=== PATIENT | male | born 1940 | race Caucasian/White ===

== ENCOUNTER 2020-08-14 09:02 | Outpatient (CLI) | payer MEDICARE, SELFPAY ==
--- NOTE | 2020-08-28 15:13 | WPDHOMESLEEP ---
Sleep Study - Home Unattended Date of Study: 08/14/20 Ordering Provider: Dami Dawson MD Interpreting Provider: Faiza Toth MD Home Sleep Study Type: Apnea Link Air Height: 1.8 m Weight: 117.934 kg Body Mass Index: 36.2 Neck Circumference (inches): 20 [place]: 10 Reason for Sleep Study Snoring, need for naps Sleep History Dane Baldwin is a 80-year-old gentleman who rarely snores. Occasionally, it is loud enough that his complains about it. He does not awaken at night with heartburn, belching or coughing. He does not awaken from sleep feeling short of breath. He occasionally has trouble sleeping with a cold however he has not had a cold in several years. He does not wake up gasping for breath at night and does not have breathing problems at night observed by others. He does not sweat excessively at night or notice his heart pounding or beating irregularly at night. He occasionally falls asleep during the day, never involuntarily and never while driving. He does not have loss of muscle tone with strong emotion, and he does not have daytime difficulties due to excessive sleepiness as he is currently retired. He does not feel paralyzed on waking or falling asleep. He rarely has vivid dreamlike scenes upon awakening or falling asleep. He does not feel afraid to go to sleep. He has had nightmares once in his life. He rarely remembers his dreams. He occasionally has racing thoughts. He rarely feels sad or depressed. He never has anxiety. He does not have muscular tension. He rarely notices parts of his body jerking and rarely kicks at night. He does not have crawling or aching feelings in his legs and does not have any kind of leg pain at night. He does not have morning jaw pain. He does not grind his teeth during sleep. He rarely is bothered by pain during the day, occasionally from his knee. He is not awakened by pain at night. He rarely wakes up feeling stiff in the morning. He wakes up with sore achy muscles only if he has strenuously exerted himself the day before. He rarely wakes up with pain in the spine. Normal bedtime is around 10 to 10:30 p.m. sometimes falling asleep more quickly than at other times. He wakes at 6:00 a.m., feels refreshed. His weekend schedule is the same. He estimates getting 6 or more hours of sleep at night. At most, he has nocturia once at night. He does take naps in the afternoon or evening. A short 10 or 15 minute nap may be refreshing. Most of the time, he feels good in the morning. Habits: Never smoked tobacco. Caffeine 2 or more beverages a day. No alcohol or recreational drugs. [facility] Past Medical History Medical History (Updated 08/28/20 @ 15:25 by Faiza Toth MD) ASHD (arteriosclerotic heart disease) Essential hypertension Mixed hyperlipidemia Type 2 diabetes mellitus without complication Family History Family History (Updated 12/22/15 @ 23:19 by DOCTOR UNKNOWN) Sibling Family history of diabetes mellitus in first degree relative Other Diabetes mellitus Social History Social History Smoking status: Never smoker Alcohol intake: never Medications Home Medications Medication Instructions Recorded Confirmed Type aspirin 81 mg tablet,delayed 81 mg PO DAILY 06/14/19 06/19/20 History release omeprazole 40 mg capsule,delayed 40 mg PO DAILY #90 cap 11/08/19 06/19/20 Rx release clopidogrel 75 mg tablet 75 mg PO DAILY #90 tablet 04/17/20 06/19/20 Rx cholecalciferol (vitamin D3) 1,250 50,000 unit PO WEEKLY #14 cap 06/16/20 06/19/20 Rx mcg (50,000 unit) capsule doxycycline hyclate 20 mg tablet 20 mg PO DAILY #1 tablet 06/19/20 06/19/20 Rx rosuvastatin 20 mg tablet 20 mg PO DAILY #90 tablet 06/19/20 06/19/20 Rx amlodipine 10 mg tablet 10 mg PO DAILY #90 tablet 07/07/20 Rx metoprolol succinate 100 mg 100 mg PO DAILY #90 tablet 07/07/20 Rx tablet,extended release 24 hr candesartan 32 1 tablet PO DAILY #90 tablet 07/10/20 Rx
[2020-08-28 15:21] VITALS: BMI 36.2
== END 2020-08-14 09:03 | disposition home or self-care (01) ==
LOC: ANHCSM 09:02
PROVIDERS: PCP Internal Medicine; Visit Provider Internal Medicine
DX: G47.10 Hypersomnia, unspecified (principal); G47.33 Obstructive sleep apnea (adult) (pediatric)
CPT/HCPCS: 95806

== ENCOUNTER 2021-02-08 07:56 | Outpatient (CLI) | payer MEDICARE, SELFPAY ==
--- NOTE | 2021-02-10 21:33 | WPDSLEEPSTUD ---
Sleep Study Date of Study: 02/08/2021 Ordering Provider: Dami Dawson MD Interpreting Physician: Faiza Toth MD Sleep Study Type: Split Polysomnogram Height: 1.8 m Weight: 108.8 kg Body Mass Index: 33.4 Neck Circumference (inches): 18 [place]: 3 Reason for Sleep Study * Home sleep test 08/14/2020 with Mild obstructive sleep apnea, AHI 9, desaturation 85%, 61% of the apneas were centrals; he has hypertension, and presents for CPAP titration. Sleep History This patient had a home sleep test on August 14 with mild obstructive sleep apnea, AHI was 9 with desaturation 85%. 61% of his apneas were centrals. He now presents for titration. His complaints include rare snoring, rarely very loud. He did not have nighttime heartburn symptoms. There was no gasping at night. He did not sweat at night or notice palpitations. He occasionally falls asleep during the day, not involuntarily and not while driving. He does not have loss of muscle tone with strong emotion or daytime difficulties due to excessive sleepiness. He rarely remember dreams. He rarely notices parts of his body jerking and he rarely kicks at night. He does not have crawling or aching feelings in the legs or any kind of leg pain at night. 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 Iron deficiency anemia Mixed hyperlipidemia Primary osteoarthritis of both knees Type 2 diabetes mellitus without complication Family History Family History Sibling Family history of diabetes mellitus in first degree relative Other Diabetes mellitus Social History Social History Alcohol intake: never Medications Home Medications Medication Instructions Recorded Confirmed Type aspirin 81 mg tablet,delayed 81 mg PO DAILY 06/14/19 09/18/20 History release doxycycline hyclate 20 mg tablet 20 mg PO DAILY #1 tablet 06/19/20 09/18/20 Rx rosuvastatin 20 mg tablet 20 mg PO DAILY #90 tablet 06/19/20 09/18/20 Rx candesartan 32 1 tablet PO DAILY #90 tablet 07/10/20 09/18/20 Rx mg-hydrochlorothiazide 12.5 mg tablet metformin 500 mg tablet See Rx Instructions .ROUTE 11/13/20 Rx .COMPLEX #180 tablet amlodipine 10 mg tablet 10 mg PO DAILY #90 tablet 01/04/21 Rx metoprolol succinate 100 mg 100 mg PO DAILY #90 tablet 01/04/21 Rx tablet,extended release 24 hr icosapent ethyl 1 gram capsule 2 g PO BID #360 cap 01/31/21 Rx Sleep Procedure This test was performed using the [employer] multiple channel system including EOG, EEG, submental EMG, EKG, nasal and oral airflow using thermistors and nasal pressure sensors, chest and abdominal belts for body position data, and pulse oximetry. Video monitoring was also performed. The study was scored using [facility] guidelines. After the baseline portion the patient met criteria for a titration with an apnea-hypopnea index of 50.7. These were all obstructive events. He used a medium ResMed AirFit F20 fullface mask and heated humidifier. The patient was not able to sleep easily after starting wearing CPAP. The initial pressure was 5 cm with a sleep efficiency of 38%. At 7 cm of water pressure the sleep efficiency was 3%. The patient had 2 minutes of sleep at this pressure. This was not an adequate titration as the patient did not have sufficient sleep. At 7 cm the apnea-hypopnea index was 30 however this is difficult to interpret as he only had 2 minutes of sleep and 1 event. THe lowest saturation was 88% at this setting. Sleep Architecture Baseline During the baseline recording time was 197.5 minutes. Sleep time 143.2 minutes. Sleep efficiency was 72.5%. Sleep latency was 5.8 minutes. REM latency 180.5 minutes. He had 25 awakenings. He spent 48 0.5 minute awake after sleep onset.
[2021-02-10 21:40] VITALS: BMI 33.4
== END 2021-02-14 02:07 | disposition home or self-care (01) ==
LOC: ANHCSM 08:01
PROVIDERS: PCP Internal Medicine; Visit Provider Internal Medicine
DX: G47.33 Obstructive sleep apnea (adult) (pediatric) (principal)
CPT/HCPCS: 95811

== ENCOUNTER 2023-11-18 22:41 | Emergency (ER) | payer MEDICARE, SELFPAY ==
--- NOTE | 2023-11-18 22:43 | PC.NURSE ---
alessia marshall in triage to assess the patient. No current beds available.
[2023-11-18 22:45] VITALS: BP 174/85; PULSE 100; RESP 20; TEMP 36.6; O2SAT 99
[2023-11-18 22:50] VITALS: O2SAT 100
--- NOTE | 2023-11-18 22:50 | PC.NURSE ---
home med list verified with [facility]
[2023-11-18] MEDS: FAMOTIDINE 20 MG/2 ML VIAL IV PUSH (22:53)
[2023-11-18] MEDS: methylPREDNISolone SOD SUCC 125 MG VIAL IV PUSH (22:55)
[2023-11-18] MEDS: diphenhydrAMINE HCl INJ 50 MG/ML VIAL IV PUSH (22:57)
[2023-11-18] MEDS: EPINEPHrine HCL INJ 1 MG/ML AMPUL 0.3 MG IM (22:58)
[2023-11-18 23:03] LABS: Basophils Percent Auto 0.5 % (0.2-1.2); Eosinophils Absolute Auto 0.2 K/mm3 (0-0.3); Eosinophils Percent Auto 2.6 % (0-4.4); Hematocrit 42.7 % (42.0-52.0); Hemoglobin 14.1 g/dL (14.0-18.0); Immature Granulocyte Absolute 0.04 K/mm3 (0.00-0.031); Immature Granulocyte Percent A 0.5 % (0-0.5); Lymphocytes Absolute Auto 2.81 K/mm3 (0.9-3.2); Mean Corpuscular Hemoglobin 30.5 pg (26-34); Mean Corpuscular Volume 92.2 fl (80-100); Mean Platelet Volume 8.8 fl (7.4-10.4); Monocytes Absolute Auto 0.7 K/mm3 (0.1-0.6); Monocytes Percent Auto 8.8 % (2.6-8.5); Neutrophils Percent Auto 51.6 % (45.5-73.1); Platelet Count Result 211 k/mm3 (150-375); Red Blood Count 4.63 M/mm3 (4.6-6.20); Red Cell Distribution Width 14.6 % (11.5-14.5); White Blood Count 7.8 K/mm3 (4.5-10.0)
[2023-11-18 23:13] LABS: Alanine Aminotransferase 16 U/L (6-50); Alkaline Phosphatase 61 U/L (38-126); Anion Gap 11 mmol/L (4-12); Aspartate Amino Transferase 22 U/L (17-59); Bilirubin,Total 1.3 mg/dL (0.2-1.3); Blood Urea Nitrogen 20 mg/dL (9-20); Calcium 9.4 mg/dL (8.4-10.2); Carbon Dioxide 29 mmol/L (22-30); Chloride 100 mmol/L (98-107); Estimated Glomerular Filt Rate > 60; Glucose 150 mg/dL (65-110); Potassium 3.9 mmol/L (3.4-5.0); Sodium 140 mmol/L (137-145)
[2023-11-18 23:20] VITALS: BP 183/69; PULSE 105; RESP 15; O2SAT 99
--- NOTE | 2023-11-18 23:28 | ED.GENADULT ---
HPI - General Adult General Chief complaint: Allergic Reaction <JULIA Block Last Filed: 11/19/23 03:24> Stated complaint: tongue swelling cant talk <JULIA Block Last Filed: 11/19/23 03:24> Time Seen by Provider: 11/18/23 22:45 <JULIA Block Last Filed: 11/19/23 03:24> Source: patient <JULIA Block Last Filed: 11/19/23 03:24> Mode of arrival: ambulatory <JULIA Block Last Filed: 11/19/23 03:24> Limitations: no limitations <JULIA Block Last Filed: 11/19/23 03:24> History of Present Illness HPI narrative: patient is an 83-year-old male who presents the ED with report of swelling of his tongue. Patient reports he began noticing a strange swelling sensation to his tongue just before dinner-time. He had [employer] spaghetti/meatballs and garlic cheese bread around 8 pm tonight. He later began noticing increased swelling of his tongue. States he is having mild difficulty swallowing due to the swelling. Denies difficulty breathing. Patient denies eating new foods tonight. He denies any known food or medication allergies. He denies any new medications. He is on candesartan/ hydrochlorothiazide. No Milind inhibitors. Denies history of similar symptoms. Denies rash or itching elsewhere. Denies nausea, vomiting, abdominal pain. <JULIA Block Last Filed: 11/19/23 03:24> Related Data Home medications: Home Medications Medication Instructions Recorded Confirmed aspirin 81 mg tablet,delayed 81 mg PO DAILY 06/14/19 09/16/23 release (Adult Low Dose Aspirin) cholecalciferol (vitamin D3) 50 50 mcg PO DAILY 02/13/21 09/16/23 mcg (2,000 unit) capsule acetaminophen 500 mg capsule 1,000 mg PO Q6H PRN Acid Reflux 03/27/21 09/16/23 doxycycline hyclate 20 mg tablet 20 mg PO DAILY 09/17/22 09/16/23 icosapent ethyl 1 gram capsule g PO 11/18/23 <Yolis Cantu PA-C - Last Filed: 11/19/23 03:24> Allergies/adverse reactions: Allergies Allergy/AdvReac Type Severity Reaction Status Date / Time No Known Allergies Allergy Unknown Verified 11/18/23 23:16 <Yolis Cantu PA-C - Last Filed: 11/19/23 03:24> Review of Systems Review of Systems: CONSTITUTIONAL: Denies fever, chills, or sweats. ENT: See HPI. CARDIOVASCULAR: Denies chest pain RESPIRATORY: See HPI. GASTROINTESTINAL: Denies abdominal pain, nausea, vomiting, or diarrhea. SKIN: Denies rash or itching. 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 Iron deficiency anemia Mixed hyperlipidemia Primary osteoarthritis of both knees Type 2 diabetes mellitus without complication <Yolis Cantu PA-C - Last Filed: 11/19/23 03:24> Family History Family History: Family History Sibling Family history of diabetes mellitus in first degree relative Other Diabetes mellitus <Yolis Cantu PA-C - Last Filed: 11/19/23 03:24> Social History Social History: Social History Smoking status: Never smoker Second hand tobacco smoke exposure: Yes Alcohol intake: former Substance use: never Substance use type: does not use Lack of Transportation: No Lack of Food: Never True Current Housing: I Have Housing Concerned About Future Housing: No Difficulty Paying Gas/Electric Bills: No Difficulty Paying for Meds: No Currently Unemployed: No Education: Bachelor's Degree Difficulty w/ Childc
[2023-11-18 23:32] VITALS: BP 164/64; PULSE 95; RESP 13; O2SAT 96
[2023-11-19] MEDS: TRANEXAMIC ACID 1,000MG/ISO100 1,000 MG/100 ML BAG 600 MG IVPB (01:41)
[2023-11-19 01:45] VITALS: BP 159/80; PULSE 93; RESP 15; O2SAT 97
--- NOTE | 2023-11-19 03:52 | PC.NURSE ---
Substantial improvement of facial and tongue swelling was noted at time of pt discharge.
== END 2023-11-19 03:15 | disposition home or self-care (01) ==
PROVIDERS: Emergency Provider Physician Assistant; PCP Nurse Practitioner
DX: T78.3XXA Angioneurotic edema, initial encounter (principal); I10 Essential (primary) hypertension; E78.2 Mixed hyperlipidemia; E11.9 Type 2 diabetes mellitus without complications
CPT/HCPCS: 36415; 80053; 85025; 96372; 96374; 96375; 99284; J0171; J1200; J2919

== ENCOUNTER 2024-06-11 16:12 | Emergency (ER) | payer OTHER, SELFPAY ==
[2024-06-11 16:13] VITALS: BP 185/76; PULSE 104; RESP 16; TEMP 36.6; O2SAT 99
--- NOTE | 2024-06-11 16:20 | ED.GENADULT ---
HPI - General Adult General Chief complaint: Dental/Oral <Von Jeffries PA-C - Last Filed: 06/11/24 16:23> Stated complaint: L sided tongue swelling <Von Jeffries PA-C - Last Filed: 06/11/24 16:23> Time Seen by Provider: 06/11/24 16:19 <Von Jeffries PA-C - Last Filed: 06/11/24 16:23> Focused HPI: This is an 84-year-old male who presents to the ED for chief complaint of tongue swelling that started just prior to to arrival. Patient states that he has had this a couple of times in the past. States that he took an EpiPen today prior to arrival as advised by his family member. States the last time he was told to stop taking his candesartan hydrochlorothiazide, which he feels that he has stopped but is not quite sure exactly what medications he takes. States today is not as bad as last time. Denies shortness of breath, chest pain, rash, abdominal pain, nausea, vomiting. GENERAL: Well-appearing, well-nourished, and in no acute distress. HEAD: Normocephalic, atraumatic. EENT: Mucosal swelling to the tongue without swelling to the lips or visualized portion of uvula. CHEST: Clear to auscultation. No respiratory distress. HEART: Regular rate and rhythm. NEURO: Alert and oriented x3. Patient screened in triage and initial orders placed. Additional care and disposition to be based upon diagnostic testing and treatment. <Von Jeffries PA-C - Last Filed: 06/11/24 16:23> Source: patient <Von Jeffries PA-C - Last Filed: 06/11/24 16:23> Mode of arrival: ambulatory <Von Jeffries PA-C - Last Filed: 06/11/24 16:23> Limitations: no limitations <Von Jeffries PA-C - Last Filed: 06/11/24 16:23> History of Present Illness HPI narrative: Patient 84-year-old gentleman presents emergency department chief complaint of tongue swelling. The patient reports he has had allergic reactions before in the past had used his EpiPen today the patient used approximately 1 hour prior to arrival in the emergency department. The patient reports the swelling has gone down and feels much better <Lorenzo Roman MD - Last Filed: 06/11/24 18:08> Related Data Home medications: Home Medications ?Medication ?Instructions ?Recorded ?Confirmed ?Last Taken ?Type aspirin 81 mg tablet,delayed 81 mg PO DAILY 06/14/19 03/25/24 Unknown History release (Adult Low Dose Aspirin) cholecalciferol (vitamin D3) 50 50 mcg PO DAILY 02/13/21 03/25/24 Unknown History mcg (2,000 unit) capsule acetaminophen 500 mg capsule 1,000 mg PO Q6H PRN Acid Reflux 03/27/21 03/25/24 Unknown History doxycycline hyclate 20 mg tablet 20 mg PO DAILY 09/17/22 03/25/24 Unknown History icosapent ethyl 1 gram capsule g PO 11/18/23 03/25/24 Unknown History <Von Jeffries PA-C - Last Filed: 06/11/24 16:23> Allergies/adverse reactions: Allergies Allergy/AdvReac Type Severity Reaction Status Date / Time No Known Allergies Allergy Unknown Verified 03/25/24 07:43 <Von Jeffries PA-C - Last Filed: 06/11/24 16:23> Review of Systems Review of Systems: A 10 system review of systems was completed on the patient and is negative except for what is stated in the HPI. Nursing and ancillary documentation was reviewed. 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 Iron deficiency anemia Mixed hyperlipidemia Primary osteoarthritis of both knees Type 2 diabetes mellitus without complication <Von Jeffries PA-C - Last Filed: 06/11/24 16:23> Family History Family History: Family History Sibling Family history of diabetes mellitus in first degree relative Other Diabetes mellitus <Von Jeffries PA-C - Last Filed: 06/11/24 16:23> Social History Social History: Social History Smoking status: Never smoker Second hand tobacco smoke exposure: Yes Alcohol intake: former Substance use: never Substance use type: does not use Lack of Transportation: No Lack of Food: Never True Current Housing: I Have Housing Concerned About Future Housing: No Difficulty Paying Gas/Electric Bills: No Difficulty Paying for Meds: No Currently Unemployed: No Education: Bachelor's Degree Difficulty w/ Childcare or Family Care: No <Von Jeffries PA-C - Last Filed: 06/11/24 16:23> Exam Narrative: GENERAL: Well-appearing, well-nourished, and in no acute distress. HEAD: Normocephalic, atraumatic. EYES: PERRLA and EOMI. ENT: Nares clear, no rhinorrhea or epistaxis. Mucous membranes moist. NECK: Supple. CHEST: Clear to auscultation. No respiratory distress. HEART: Regular rate and rhythm. No murmur heard. Normal peripheral pulses. ABDOMEN: Soft, nontender, nondistended, normal active bowel sounds. EXTREMITIES: Normal range of motion. No edema. SKIN: Warm, dry, no rash. NEURO: No focal deficits. Alert and oriented x3. PSYCH: Normal mood and affect. <Lorenzo Roman MD - Last Filed: 06/11/24 18:08> Course Vital Signs Vital signs: Vital Signs Temperature 36.6 C 06/11/24 16:13 Pulse Rate 104 H 06/11/24 16:13 Respiratory Rate 16 06/11/24 16:13 Blood Pressure 185/76 H 06/11/24 16:13 Pulse Oximetry 99 06/11/24 16:13 Oxygen Delivery Room Air 06/11/24 16:13 Temperature 36.6 C 06/11/24 16:13 Pulse Rate 92 06/11/24 17:30 Respiratory Rate 14 06/11/24 17:30 Blood Pressure 157/84 H 06/11/24 17:30 Pulse Oximetry 97 06/11/24 17:30 Oxygen Delivery Room Air 06/11/24 16:13 <Von Jeffries PA-C - Last Filed: 06/11/24 16:23> Vital Signs Temperature 36.6 C 06/11/24 16:13 Pulse Rate 104 H 06/11/24 16:13 Respiratory Rate 16 06/11/24 16:13 Blood Pressure 185/76 H 06/11/24 16:13 Pulse Oximetry 99 06/11/24 16:13 Oxygen Delivery Room Air 06/11/24 16:13 Temperature 36.6 C 06/11/24 16:13 Pulse Rate 92 06/11/24 17:30 Respiratory Rate 14 06/11/24 17:30 Blood Pressure 157/84 H 06/11/24 17:30 Pulse Oximetry 97 06/11/24 17:30 Oxygen Delivery Room Air 06/11/24 16:13 <Lorenzo Roman MD - Last Filed: 06/11/24 18:08> Medical Decision Making MDM Narrative Medical decision making narrative: Differential diagnosis includes allergic reaction, angioedema The patient is currently back to normal will be observed for a total of 4 hours and will be discharged home on prednisone and given a prescription for epinephrine <Lorenzo Roman MD - Last Filed: 06/11/24 18:08> Vital Signs Vital Signs: Vital Signs Temperature 36.6 C 06/11/24 16:13 Pulse Rate 104 H 06/11/24 16:13 Respiratory Rate 16 06/11/24 16:13 Blood Pressure 185/76 H 06/11/24 16:13 Pulse Oximetry 99 06/11/24 16:13 Oxygen Delivery Room Air 06/11/24 16:13 Temperature 36.6 C 06/11/24 16:13 Pulse Rate 92 06/11/24 17:30 Respiratory Rate 14 06/11/24 17:30 Blood Pressure 157/84 H 06/11/24 17:30 Pulse Oximetry 97 06/11/24 17:30 Oxygen Delivery Room Air 06/11/24 16:13 <Von Jeffries PA-C - Last Filed: 06/11/24 16:23> Vital Signs Temperature 36.6 C 06/11/24 16:13 Pulse Rate 104 H 06/11/24 16:13 Respiratory Rate 16 06/11/24 16:13 Blood Pressure 185/76 H 06/11/24 16:13 Pulse Oximetry 99 06/11/24 16:13 Oxygen Delivery Room Air 06/11/24 16:13 Temperature 36.6 C 06/11/24 16:13 Pulse Rate 92 06/11/24 17:30 Respiratory Rate 14 06/11/24 17:30 Blood Pressure 157/84 H 06/11/24 17:30 Pulse Oximetry 97 06/11/24 17:30 Oxygen Delivery Room Air 06/11/24 16:13 <Lorenzo Roman MD - Last Filed: 06/11/24 18:08> Discharge Plan Discharge Clinical Impression: Allergic reaction <Von Jeffries PA-C - Last Filed: 06/11/24 16:23> Patient Disposition: Home, Self-Care <Von Jeffries PA-C - Last Filed: 06/11/24 16:23> Condition: Stable <JULIA Daugherty Last Filed: 06/11/24 16:23> Instructions: Antibiotic Form, General Allergic Reaction (ED) <JULIA Daugehrty Last Filed: 06/11/24 16:23> Patient Language: Portuguese <Von Jeffries PA-C - Last Filed: 06/11/24 16:23> Prescriptions: New epinephrine [EpiPen 2-Obed] 0.3 mg/0.3 mL auto-injector 0.3 mg IM Q5-15M PRN (Reason: anaphylaxis) Qty: 2 0RF Rx Instructions: do not exceed 3 doses per episode prednisone 20 mg tablet 40 mg PO DAILY 5 Days Qty: 10 0RF No Action metoprolol succinate 100 mg tablet extended release 24 hr 100 mg PO DAILY Qty: 90 1RF nitroglycerin 0.4 mg tablet, sublingual 0.4 mg sublingual Q5M PRN (Reason: chest pain) Qty: 30 1RF Rx Instructions: do not exceed 3 doses per episode acetaminophen 500 mg capsule 1,000 mg PO Q6H PRN (Reason: Acid Reflux) cholecalciferol (vitamin D3) 50 mcg (2,000 unit) capsule 50 mcg PO DAILY doxycycline hyclate 20 mg tablet 20 mg PO DAILY icosapent ethyl 1 gram capsule PO aspirin [Adult Low Dose Aspirin] 81 mg tablet,delayed release (DR/EC) 81 mg PO DAILY metformin 500 mg tablet See Rx Instructions .ROUTE .COMPLEX Qty: 180 1RF Dose Instruction: TAKE 1 TABLET BY MOUTH TWICE A DAY Rx Instructions: TAKE 1 TABLET BY MOUTH TWICE A DAY rosuvastatin 20 mg tablet See Rx Instructions .ROUTE .COMPLEX Qty: 90 1RF Dose Instruction: TAKE 1 TABLET BY MOUTH EVERY DAY Rx Instructions: TAKE 1 TABLET BY MOUTH EVERY DAY amlodipine 10 mg tablet See Rx Instructions .ROUTE .COMPLEX Qty: 90 1RF Dose Instruction: TAKE 1 TABLET BY MOUTH EVERY DAY Rx Instructions: TAKE 1 TABLET BY MOUTH EVERY DAY hydralazine 50 mg tablet See Rx Instructions .ROUTE .COMPLEX Qty: 90 3RF Dose Instruction: TAKE 1 TABLET BY MOUTH 3 TIMES A DAY Rx Instructions: TAKE 1 TABLET BY MOUTH 3 TIMES A DAY icosapent ethyl [Vascepa] 1 gram capsule 2 g PO BID Qty: 360 1RF <Von Jeffries PA-C - Last Filed: 06/11/24 16:23> Follow-up/Referrals: Alfonso Varghese APRN [Primary Care Provider] - <Von Jeffries PA-C - Last Filed: 06/11/24 16:23>
[2024-06-11] MEDS: diphenhydrAMINE HCl INJ 50 MG/ML VIAL 25 MG IV PUSH (17:13)
[2024-06-11] MEDS: dexAMETHasone SOD PHOS INJ 10 MG/ML 1 ML VIAL IV PUSH (17:14)
[2024-06-11] MEDS: FAMOTIDINE 20 MG/2 ML VIAL IV PUSH (17:14)
[2024-06-11 17:30] VITALS: BP 157/84; PULSE 92; RESP 14; O2SAT 97
[2024-06-11 18:00] VITALS: BP 135/75; PULSE 91; RESP 15; O2SAT 96
[2024-06-11 19:17] VITALS: BP 136/88; PULSE 74; RESP 16; O2SAT 98
--- OUTSIDE RECORDS SUMMARY | 2024-06-17 07:18 | XMS_ITS | Referral Summary ---
Author Organization [facility] [address] [facility] [address] Address [address] [place] [address] Care Team Providers Care Church Musician Name Role Phone Alfonso Varghese NP Primary Care Provider [phone] Allergies No known active allergies Medications rosuvastatin (CRESTOR) 20 mg tablet take 1 tablet by oral route every day 0 0 4 Active niacin ER (NIASPAN) 125 mg CR capsule take 1 capsule by oral route every day with meals 0 0 4 Active Additional Information Patient not taking.Reported on 05/14/2022 metFORMIN (GLUCOPHAGE) 500 mg tablet take 1 tablet by oral route 2 times every day with morning and evening meals 0 0 4 Active aspirin (ASPIR-81) 81 mg tablet take 1 Tablet by oral route every day 0 0 6 Active FABB 2.2-25-1 mg tablet Take 1 tablet by mouth daily 3 9 Active doxycycline (PERIOSTAT) 20 mg tablet 1 tablet (20 mg total) daily 5 9 Active icosapent ethyL (VASCEPA) 1 gram capsule Take 2 capsules (2 g total) by mouth 2 (two) times a day Active metoprolol XL (TOPROL-XL) 50 mg extended release tablet Take 2 tablets (100 mg total) by mouth daily Active candesartan-hyd rochlorothiazid (ATACAND HCT) 32-12.5 mg per tablet Take 1 tablet by mouth daily Active amLODIPine (NORVASC) 10 mg tablet amlodipine 10 mg tablet Active nitroglycerin (NITROSTAT) 0.[address] 1 tablet (0.4 mg total) under the tongue every 5 (five) minutes as needed for chest pain 25 tablet 11 2 Active Active Problems Problem Noted Date Diagnosed Date Angina pectoris, unspecified 11/08/2021 History of coronary artery stent placement 08/17 Coronary artery disease invo lving [place] coronary artery of [place] heart without angina pectoris 02/19/2018 Social History Tobacco Use Types Packs/Day Years Used Date Smoking Tobacco: Never Smokeless Tobacco: Never Tobacco Cessation:Counseling Given: Not Answered Alcohol Use Standard Drinks/Week Comments No 0 (1 standard drink = 0.6 oz pur e alcohol) Personal Safety Answer Date Recorded Getting School Help Needed Not on file 06/29 Sex and Gender Information Value Date Recorded Sex Assigned at Not on file Legal Sex Male 2:05 AM [employer] PAGE DES[employer] Gender Identity Not on file Sexual Orientation Not on file Last Filed Vital Signs Vital Sign Reading Time Taken Comments Blood Pressure 162/80 07/01/2023 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 Pulse 77 07/01/2023 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 Temperature - - Respiratory Rate - - Oxygen Saturation 100% 07/01/2023 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 Inhaled Oxygen Concentration - - Weight 101.2 kg (223 lb) 07/01/2023 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 Height 180.3 cm (5' 11 ) 07/01/2023 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 Body Mass Index 31.1 07/01/2023 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 Plan of Treatment Not on file [place] [address] [facility] MEDICARE [employer] MEDICARE Care Teams Church Musician Relationship Specialty Start Date End Date Alfonso Varghese NP [address] [place] [address] PCP - General Nurse Practitioner 07/01/23
--- OUTSIDE RECORDS SUMMARY | 2024-06-17 07:18 | XMS_ITS | Clinical Summary ---
Author Organization [facility] [address] [facility] [address] Address [address] [place] [address] Care Team Providers Care Mountain Bike Guide Name Role Phone Alfonso Varghese NP Primary Care Provider [phone] Allergies No known active allergies Medications rosuvastatin [...] placement 08/17 Coronary artery disease invo lving [place] coronary artery of [place] heart without angina pectoris 02/19/2018 Surgical History Surgery Date Site/Laterality Comments KNEE SURGERY 05/26/2020 - 05/25/2021 Right JOINT REPLACEMENT 03/15 Medical History Medical History Date Comments CAD (coronary artery disease) Diabetes mellitus (HCC) Hypertension Social History Tobacco Use Types Packs/Day Years [...] on file Legal Sex Male 2:05 AM INCIDENT COORDINATOR Gender Identity Not on file Sexual Orientation Not on file Obstetrics History Last Filed Vital Signs Vital Sign Reading Time Taken Comments Blood Pressure 162/80 07/01/2023 8:32 AM INCIDENT COORDINATOR Pulse 77 07/01/2023 8:32 AM INCIDENT COORDINATOR Temperature - - Respiratory Rate - - Oxygen Saturation 100% 07/01/2023 8:32 AM INCIDENT COORDINATOR Inhaled Oxygen Concentration - - Weight 101.2 kg (223 lb) 07/01/2023 8:32 AM INCIDENT COORDINATOR Height 180.3 cm (5' 11 ) 07/01/2023 8:32 AM INCIDENT COORDINATOR Body Mass Index 31.1 07/01/2023 8:32 AM INCIDENT COORDINATOR Plan of Treatment Health Maintenance Due Date Last Done Comments Depression Screening 1942 Fall Risk Assessment 1942 DTaP/Tdap/Td Vaccine (1 - Tdap) 1953 Hepatitis B Screening 1960 Well Visit 65+ 2007 Zoster Vaccine (2 of 2) 01/09/2019 11/14/2018 Influenza Vaccine (#1) 2024 8, 03/11/2016, 04/04/2015, Additional history exists Pneumococcal vaccine 65+ Completed 019, 05/08/2017, 03/04/2012 [address] [place] [address] [address] T MEDICARE Care Teams Mountain Bike Guide Relationship Specialty Start Date End Date Alfonso Varghese NP [address] [place] [address] PCP - General Nurse Practitioner 07/01/23
== END 2024-06-11 19:18 | disposition home or self-care (01) ==
PROVIDERS: Emergency Provider Emergency Medicine; PCP Nurse Practitioner
DX: T78.40XA Allergy, unspecified, initial encounter (principal); I25.10 Atherosclerotic heart disease of native coronary artery without angina pectoris; I10 Essential (primary) hypertension; E11.9 Type 2 diabetes mellitus without complications; E78.2 Mixed hyperlipidemia; D50.9 Iron deficiency anemia, unspecified; M17.0 Bilateral primary osteoarthritis of knee; Z79.82 Long term (current) use of aspirin; Z79.84 Long term (current) use of oral hypoglycemic drugs; Z79.899 Other long term (current) drug therapy; X58.XXXA Exposure to other specified factors, initial encounter
CPT/HCPCS: 96374; 96375; 96376; 99284; J1100; J1200

== ENCOUNTER 2025-05-04 16:39 | Emergency (ER) | payer MEDICARE, SELFPAY ==
[2025-05-04] VITALS (26 sets, daily range): BP systolic 122–148; BP diastolic 74–95; PULSE 83–117; RESP 9–31; TEMP 36.9; O2SAT 93–99
--- NOTE | ~2025-05-04 | CT_ITS ---
EXAM/PROCEDURE: CT soft tissue neck w con HISTORY: swollen tongue, concern for angioedema COMPARISON: None available. TECHNIQUE: Contrast-enhanced soft tissue neck CT FINDINGS: Slight prominence in the right tonsillar column/soft tissues with no compromise of the oropharyngeal or hypopharyngeal airway. No discrete lesion or mass. No drainable fluid collection. Retropharyngeal and parapharyngeal spaces appear otherwise normal. Fossae of [place] are symmetric and appear normal. Moderately extensive vascular calcification in the carotid arteries. No acute process seen in the intracranial contents or visualized upper chest. Diffuse degenerative changes throughout the cervical spine. IMPRESSION: Mildly prominent right tonsillar soft tissues could be associated with infection/inflammation or possible angioedema. No discrete lesion/mass; no abscess or drainable fluid collection. NOTE: Preliminary radiology report provided by [facility] radiologist/physician. IMPRESSION: No acute findings. Reviewed, dictated and finalized at location A. NT CARE COORDINATOR IMPRESSION: Mildly prominent right tonsillar soft tissues could be associated w ith infection/inflammation or possible angioedema. No discrete lesion/mass; no abscess or drainable fluid collection. NOTE: Preliminary radiology report provided by [facility] radiologist/physician. IMPRESSION: No acute findings.
--- NOTE | 2025-05-04 17:05 | ED_ITS ---
HPI - Dental/Oral General Chief complaint: Allergic Reaction <Sara Forbes APRN - Last Filed: 05/04/25 23:59> Stated complaint: tongue swelling <Sara Forbse APRN - Last Filed: 05/04/25 23:59> Time Seen by Provider: 05/04/25 17:01 <Sara Forbes APRN - Last Filed: 05/04/25 23:59> History of Present Illness HPI Narrative: Patient is an 84-year-old male who presents to the ER with tongue swelling. He reports his symptoms started approximately 30 minutes for higher to arrival. His reports his voice has changed. Patient reports he has had this sensation before and has been evaluated and this ER multiple times for the same symptoms. He endorses a history of cardiac stents, high blood pressure, and hyperlipidemia. Patient denies any difficulty swallowing, shortness of breath, hives, or drooling. <Sara Forbes APRN - Last Filed: 05/04/25 23:59> Related Data Home medications: Home Medications ?Medication ?Instructions ?Recorded ?Confirmed ?Last Taken ?Type aspirin 81 mg tablet,delayed 81 mg PO DAILY 06/14/19 1 Unknown History release (Adult Low Dose Aspirin) cholecalciferol (vitamin D3) 50 50 mcg PO DAILY 03/04/25 Unknown History mcg (2,000 unit) capsule acetaminophen 500 mg capsule 1,000 mg PO Q6H PRN Acid Reflux 03/27/21 03/04/25 Unknown History doxycycline hyclate 20 mg tablet 20 mg PO DAILY 03/04/25 Unknown History <Sara Forbes APRN - Last Filed: 05/04/25 23:59> Allergies/adverse reactions: Allergies Allergy/AdvReac Type Severity Reaction Status Date / Time candesartan AdvReac Intermediate Swelling Verified 05/04/25 17:01 of Lip/Tongue/Throat <Sara Forbes APRN - Last Filed: 05/04/25 23:59> Review of Systems 2 Review of Systems: All systems reviewed & are unremarkable except as noted in HPI and below <Sara Forbes APRN - Last Filed: 05/04/25 23:59> PMFSH Past Medical History Medical History: Medical History BMI 31.0-31.9,adult ASHD (arteriosclerotic heart disease) Essential hypertension 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 Mother No problems noted. Other Diabetes mellitus <Sara Forbes APRN - Last Filed: 05/04/25 23:59> Social History Social History: Social History Smoking status: Never smoker Second hand tobacco smoke exposure: Yes Alcohol intake: former Substance use: never Substance use type: does not use Lack of Transportation: No Lack of Food: Never True Current Housing: I Have Housing Concerned About Future Housing: No Difficulty Paying Gas/Electric Bills: No Difficulty Paying for Meds: No Currently Unemployed: No Education: Bachelor's Degree Difficulty w/ Childcare or Family Care: No Living arrangements: with family Occupation/Education: 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 HEAD: Normocephalic, atraumatic. + tongue swelling, no uvula deviation, no redness, no significant swelling in other parts of pt's mouth, + muffled voice NECK: Supple. No adenopathy, no masses. RESPIRATORY: Airway patent, respirations nonlabored. Clear to auscultation bilaterally, no rales, rhonchi, wheezing. CARDIOVASCULAR: Regular rate and rhythm without murmurs, rubs, or gallops. Peripheral pulses 2+ and equal bilaterally. ABDOMINAL: Soft, nontender, nondistended, no hepatosplenomegaly. Normoactive BS. MUSCULOSKELETAL: Moves all extremities. Strength/ROM intact without gross deformities. SKIN: Warm, dry, normal color. No rashes. NEURO: A&O X3. Speech clear. Cranial nerves II-XII intact. No ataxic movements. PSYCHIATRIC: Appropriate mood and affect. Normal interaction. <Sara Forbes, NARCOTICS AGENT - Last Filed: 05/04/25 23:59> Course LORRY WEIGHER/PA Physician Supervision This visit was performed by both a physician and an APC. I performed all aspects of the MDM as documented. <Evangelist Barajas, - Last Filed: 05/05/25 00:44> Vital Signs Vital signs: Vital Signs Pulse Rate 87 05/04/25 16:56 Respiratory Rate 15 05/04/25 16:56 Blood Pressure 133/75 05/04/25 16:56 Pulse Oximetry 99 05/04/25 16:56 Oxygen Delivery Room Air 05/04/25 16:56 Temperature 98.4 F 05/04/25 23:45 Pulse Rate 98 05/04/25 23:45 Respiratory Rate 18 05/04/25 23:45 Blood Pressure 144/90 H 05/04/25 23:45 Pulse Oximetry 97 05/04/25 23:45 Oxygen Delivery Room Air 05/04/25 16:56 <Sara Forbes, NARCOTICS AGENT - Last Filed: 05/04/25 23:59> Vital Signs Pulse Rate 87 05/04/25 16:56 Respiratory Rate 15 05/04/25 16:56 Blood Pressure 133/75 05/04/25 16:56 Pulse Oximetry 99 05/04/25 16:56 Oxygen Delivery Room Air 05/04/25 16:56 Temperature 98.4 F 05/04/25 23:45 Pulse Rate 98 05/04/25 23:45 Respiratory Rate 18 05/04/25 23:45 Blood Pressure 144/90 H 05/04/25 23:45 Pulse Oximetry 97 05/04/25 23:45 Oxygen Delivery Room Air 05/04/25 16:56 <Evangelist Barajas, - Last Filed: 05/05/25 00:44> [facility] MDM Narrative Medical decision making narrative: Patient is an 84-year-old male who presents to the ER with tongue swelling. He reports his symptoms started approximately 30 minutes for higher to arrival. His reports his voice has changed. Patient reports he has had this sensation before and has been evaluated and this ER multiple times for the same symptoms. He endorses a history of cardiac stents, high blood pressure, and hyperlipidemia. Patient denies any difficulty swallowing, shortness of breath, hives, or drooling. Labs Ordered: CBC, CMP Imaging Ordered: CT soft tissue neck Medications Ordered: 1 L normal saline IV bolus, Benadryl IV, Decadron IV, DuoNeb, Pepcid IV Results: Patient's CT scan indicates asymmetry of the right tonsillar soft tissue which could be due to infection or inflammation. Angioedema is also on the differential diagnosis. Neoplasm cannot be entirely excluded. Bilateral carotid artery calcification. Degenerative changes of the spine. Calcification of the thoracic aorta. Diagnosis: angioedema, tonsillitis MDM: Upon re-evaluation, pt continues to endorse a moderately swollen tongue. He reports his symptoms started this morning as pain in his R lower, inner jaw. With a lack of improvement, will proceed forward with a CT scan. 2330- Pt endorses significant relief of symptoms upon re-evaluation. His voice is less muffled and he reports his tongue swelling has decreased. Patient Education/Shared MDM: Discussed case with attending, Dr. Barajas, who advised pt receive a dose of epi IM. He also suggested pt have a strep swab collected. Results of lab work and imaging shared with patient and his . LORRY WEIGHER, pt and pt's discussed admission versus discharge. Pt would like to be discharged home and follow-up with his PCP tomorrow morning. He will be treated for tonsillitis, as pt's CT scan results was unable to differentiate between inflammation versus infection. Patient strongly advised to maintain hydration status upon discharge and, once again, follow-up with his PCP as soon as possible. He will be discharged home with a prescription for Keflex and Prednisone. Strict return precautions provided. Patient verbalized understanding and is in agreement with plan. Vital signs stable at time of discharge. All questions answered. <Sara Forbes APRN - Last Filed: 05/04/25 23:59> Differential Diagnosis Differential Diagnosis: Angioedema, tonsillitis, allergic reaction <Sara Forbes APRN - Last Filed: 05/04/25 23:59> Lab Data [facility] Lab Attestation statement: I personally reviewed the patient's lab results. <Sara Forbes APRN - Last Filed: 05/04/25 23:59> Result diagrams: 05/04/25 20:53 05/04/25 20:53 <Sara Forbes APRN - Last Filed: 05/04/25 23:59> Labs: Lab Results 05/04/25 05/04/25 05/04/25 Range/Units 17:04 20:53 23:52 WBC 6.7 (4.5-10.0) K/mm3 RBC 4.16 L (4.6-6.20) M/mm3 Hgb 12.7 L (14.0-18.0) g/dL Hct 39.1 L (42.0-52.0) % MCV 94.0 (80-100) fl MCH 30.5 (26-34) pg MCHC 32.5 (32-36) g/dl RDW 14.7 H (11.5-14.5) % Plt Count 232 (150-375) k/mm3 MPV 8.4 (7.4-10.4) fl Immature Gran % (Auto) 0.3 (0-0.5) % Neut % (Auto) 85.0 H (45.5-73.1) % Lymph % (Auto) 12.5 L (18.3-44.2) % Barber % (Auto) 1.8 L (2.6-8.5) % Eos % (Auto) 0.1 (0-4.4) % Baso % (Auto) 0.3 (0.2-1.2) % Lymph # (Auto) 0.84 L (0.9-3.2) K/mm3 Barber # (Auto) 0.1 (0.1-0.6) K/mm3 Eos # (Auto) 0.0 (0-0.3) K/mm3 Baso # (Auto) 0.0 (0.0-0.1) K/mm3 Abs Immat Gran (auto) 0.02 (0.00-0.031) K/mm3 Absolute Neuts (auto) 5.7 (1.3-6.7) K/mm3 Absolute Nucleated RBC 0.000 (0.0-0.012) K/mm3 Nucleated RBC % 0.0 (0.0-0.2) % Sodium 136 L (137-145) mmol/L Potassium 4.0 (3.4-5.0) mmol/L Chloride 106 (98-107) mmol/L Carbon Dioxide 23 (22-30) mmol/L Anion Gap 7 (4-12) mmol/L BUN 13 D (9-20) mg/dL Creatinine 0.82 (0.7-1.3) mg/dL Estim Creat Clear Calc 65 ml/min Estimated GFR > 60 (59 - ) Glucose 140 H (65-110) mg/dL Calcium 9.1 (8.4-10.2) mg/dL Total Bilirubin 1.0 (0.2-1.3) mg/dL AST 21 (17-59) U/L ALT 17 (6-50) U/L Alkaline Phosphatase 89 (38-126) U/L Total Protein 7.5 (6.3-8.2) g/dL Albumin 4.2 (3.5-5.1) g/dL Monoscreen Negative (Negative) Group A Strep (PCR) Not detected (Negative) <Sara Forbes, NARCOTICS AGENT - Last Filed: 05/04/25 23:59> Lab Results 05/04/25 05/04/25 05/04/25 Range/Units 17:04 20:53 23:52 WBC 6.7 (4.5-10.0) K/mm3 RBC 4.16 L (4.6-6.20) M/mm3 Hgb 12.7 L (14.0-18.0) g/dL Hct 39.1 L (42.0-52.0) % MCV 94.0 (80-100) fl MCH 30.5 (26-34) pg MCHC 32.5 (32-36) g/dl RDW 14.7 H (11.5-14.5) % Plt Count 232 (150-375) k/mm3 MPV 8.4 (7.4-10.4) fl Immature Gran % (Auto) 0.3 (0-0.5) % Neut % (Auto) 85.0 H (45.5-73.1) % Lymph % (Auto) 12.5 L (18.3-44.2) % Barber % (Auto) 1.8 L (2.6-8.5) % Eos % (Auto) 0.1 (0-4.4) % Baso % (Auto) 0.3 (0.2-1.2) % Lymph # (Auto) 0.84 L (0.9-3.2) K/mm3 Barber # (Auto) 0.1 (0.1-0.6) K/mm3 Eos # (Auto) 0.0 (0-0.3) K/mm3 Baso # (Auto) 0.0 (0.0-0.1) K/mm3 Abs Immat Gran (auto) 0.02 (0.00-0.031) K/mm3 Absolute Neuts (auto) 5.7 (1.3-6.7) K/mm3 Absolute Nucleated RBC 0.000 (0.0-0.012) K/mm3 Nucleated RBC % 0.0 (0.0-0.2) % Sodium 136 L (137-145) mmol/L Potassium 4.0 (3.4-5.0) mmol/L Chloride 106 (98-107) mmol/L Carbon Dioxide 23 (22-30) mmol/L Anion Gap 7 (4-12) mmol/L BUN 13 D (9-20) mg/dL Creatinine 0.82 (0.7-1.3) mg/dL Estim Creat Clear Calc 65 ml/min Estimated GFR > 60 (59 - ) Glucose 140 H (65-110) mg/dL Calcium 9.1 (8.4-10.2) mg/dL Total Bilirubin 1.0 (0.2-1.3) mg/dL AST 21 (17-59) U/L ALT 17 (6-50) U/L Alkaline Phosphatase 89 (38-126) U/L Total Protein 7.5 (6.3-8.2) g/dL Albumin 4.2 (3.5-5.1) g/dL Monoscreen Negative (Negative) Group A Strep (PCR) Not detected (Negative) <Evangelist Barajas DO - Last Filed: 05/05/25 00:44> Imaging Data Attestation: I personally reviewed and interpreted this imaging study as follows: < Sara Forbes, NARCOTICS AGENT - Last Filed: 05/04/25 23:59> Radiologist's impression: Patient's CT scan indicates asymmetry of the right tonsillar soft tissue which could be due to infection or inflammation. Angioedema is also on the differential diagnosis. Neoplasm cannot be entirely excluded. Bilateral carotid artery calcification. Degenerative changes of the spine. Calcification of the thoracic aorta. <Sara Forbes NARCOTICS AGENT - Last Filed: 05/04/25 23:59> Discharge Plan Discharge Clinical Impression: Angioedema, Allergic reaction, Acute infective tonsillitis <Sara Forbes NARCOTICS AGENT - Last Filed: 05/04/25 23:59> Patient Disposition: Home <Sara Forbes APRN - Last Filed: 05/04/25 23:59> Condition: Stable <Sara Forbes NARCOTICS AGENT - Last Filed: 05/04/25 23:59> Instructions: Antibiotic Form, Anaphylaxis (ED) <Sara Forebs APRN - Last Filed: 05/04/25 23:59> Additional Instructions: Please return to the ER with any worsening symptoms. Follow-up with primary care provider as soon as possible in the morning. Take all medications as prescribed, including regularly scheduled medications. You will be discharged home with a prescription for an antibiotic, in case this is infectious. You will also be discharged home with a prescription for steroids to help reduce the swelling. <Sara Forbes APRN - Last Filed: 05/04/25 23:59> Patient Language: Sammarinese <Sara Forbes APRN - Last Filed: 05/04/25 23:59> Prescriptions: New amoxicillin-pot clavulanate 875-125 mg tablet 1 tablet PO Q12H Qty: 20 0RF prednisone 20 mg tablet 20 mg PO BID Qty: 10 0RF No Action nitroglycerin 0.4 mg tablet, sublingual 0.4 mg sublingual Q5M PRN (Reason: chest pain) Qty: 30 1RF Rx Instructions: do not exceed 3 doses per episode rosuvastatin 20 mg tablet See Rx Instructions .ROUTE .COMPLEX Qty: 90 3RF Dose Instruction: TAKE 1 TABLET BY MOUTH EVERY DAY Rx Instructions: TAKE 1 TABLET BY MOUTH EVERY DAY acetaminophen 500 mg capsule 1,000 mg PO Q6H PRN (Reason: Acid Reflux) cholecalciferol (vitamin D3) 50 mcg (2,000 unit) capsule 50 mcg PO DAILY doxycycline hyclate 20 mg tablet 20 mg PO DAILY epinephrine [EpiPen 2-Obed] 0.3 mg/0.3 mL auto-injector 0.3 mg IM Q5-15M PRN (Reason: anaphylaxis) Qty: 2 0RF Rx Instructions: do not exceed 3 doses per episode aspirin [Adult Low Dose Aspirin] 81 mg tablet,delayed release (DR/EC) 81 mg PO DAILY icosapent ethyl [Vascepa] 1 gram capsule 2 g PO BID Qty: 360 3RF hydralazine 50 mg tablet See Rx Instructions .ROUTE .COMPLEX Qty: 90 6RF Dose Instruction: TAKE 1 TABLET BY MOUTH THREE TIMES A DAY Rx Instructions: TAKE 1 TABLET BY MOUTH THREE TIMES A DAY metoprolol succinate 100 mg tablet extended release 24 hr 100 mg PO DAILY Qty: 90 3RF amlodipine 10 mg tablet See Rx Instructions .ROUTE .COMPLEX Qty: 90 3RF Dose Instruction: TAKE 1 TABLET BY MOUTH EVERY DAY Rx Instructions: TAKE 1 TABLET BY MOUTH EVERY DAY metformin 500 mg tablet See Rx Instructions .ROUTE .COMPLEX Qty: 180 3RF Dose Instruction: TAKE 1 TABLET BY MOUTH TWICE A DAY Rx Instructions: TAKE 1 TABLET BY MOUTH TWICE A DAY <Sara Forbes APRN - Last Filed: 05/04/25 23:59> Follow-up/Referrals: Alfonso Varghese APRN [Primary Care Provider, Internal Medicine] <Sara Forbes APRN - Last Filed: 05/04/25 23:59> Stand Alone Forms: Work/School Release IP <Sara Forbes APRN - Last Filed: 05/04/25 23:59> Time of Disposition: 23:59 <Sara Forbes APRN - Last Filed: 05/04/25 23:59> 23:59 <Evangelist Barajas DO - Last Filed: 05/05/25 00:44>
[2025-05-04] MEDS: FAMOTIDINE 20 MG/2 ML VIAL IV PUSH (18:00)
[2025-05-04] MEDS: SODIUM CHLORIDE 0.9% IV 1,000 ML 999 ML IV CONT (18:00)
[2025-05-04] MEDS: dexAMETHasone SOD PHOS INJ 10 MG/ML 1 ML VIAL IV PUSH (18:09)
[2025-05-04] MEDS: IPRATROPIUM 0.5 MG/ALBUTEROL SULFATE 2.5 MG (BASE) AMPUL.NEB 3 ML INHALATION (18:30)
[2025-05-04 20:59] LABS: Hematocrit 39.1 % (42.0-52.0); Hemoglobin 12.7 g/dL (14.0-18.0); Immature Granulocyte Percent A 0.3 % (0-0.5); Lymphocytes Absolute Auto 0.84 K/mm3 (0.9-3.2); Mean Corpuscular HGB Conc 32.5 g/dl (32-36); Mean Corpuscular Hemoglobin 30.5 pg (26-34); Mean Corpuscular Volume 94.0 fl (80-100); Nucleated Red Blood Cells Absolute Auto 0.000 K/mm3 (0.0-0.012); Nucleated Red Blood Cells Perc 0.0 % (0.0-0.2); Platelet Count Result 232 k/mm3 (150-375); Red Blood Count 4.16 M/mm3 (4.6-6.20); White Blood Count 6.7 K/mm3 (4.5-10.0)
--- OUTSIDE RECORDS SUMMARY | 2025-05-04 21:01 | XMS_ITS | Clinical Summary ---
Author Organization [facility] [address] [facility] [address] Address [address] [place] [address] Care Team Providers Care Bakery Machine Mechanic Supervisor Name Role Phone Alfonso Varghese NP Primary Care Provider Allergies No known active allergies Medications rosuvastatin (CRESTOR) 20 mg tablet take 1 tablet by oral route every day 0 0 4 Active Additional Information Patient not taking.Reported on 07/01/2024 niacin ER (NIASPAN) 125 mg CR capsule take 1 capsule by oral route every day with meals 0 0 4 Active Additional Information Patient not taking.Reported on 07/01/2024 metFORMIN (GLUCOPHAGE) 500 mg tablet take 1 [...] chest pain 25 tablet 11 2 Active hydrALAZINE (APRESOLINE) 50 mg tablet Take 1 tablet (50 mg total) by mouth 3 (three) times a day 5 Active Active Problems Problem Noted Date Diagnosed Date Angina pectoris, unspecified 11/08/2021 History of coronary artery stent placement 08/17 Coronary artery disease invo lving [place] coronary artery of [place] heart without angina pectoris 02/19/2018 Surgical History Surgery Date Site/Laterality Comments KNEE SURGERY 05/26/2020 - 05/25/2021 Right JOINT REPLACEMENT 03/15 Medical History Medical History Date Comments CAD (coronary artery disease) Diabetes mellitus Hypertension Social History Tobacco Use Types Packs/Day Years Used Date Smoking Tobacco: Never Smokeless Tobacco: Never Tobacco Cessation:Counseling Given: Not Answered Alcohol Use Standard Drinks/Week Comments No 0 (1 standard drink = 0.6 oz pur e alcohol) Sex and Gender Information Value Date Recorded Sex Assigned at Not on file Legal Sex Male 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 OPERATOR Gender Identity Not on file Sexual Orientation Not on file Last Filed Vital Signs Vital Sign Reading Time Taken Comments Blood Pressure 132/72 07/01/2024 8:17 AM SHOT GRINDER OPERATOR Pulse 78 07/01/2024 8:17 AM SHOT GRINDER OPERATOR Temperature - - Respiratory Rate - - Oxygen Saturation 97% 07/01/2024 8:17 AM SHOT GRINDER OPERATOR Inhaled Oxygen Concentration - - Weight 96.6 kg (212 lb 14.4 oz) 07/01/2024 8:17 AM SHOT GRINDER OPERATOR Height 180.3 cm (5' 11) 07/01/2024 8:17 AM SHOT GRINDER OPERATOR Body Mass Index 29.69 07/01/2024 8:17 AM SHOT GRINDER OPERATOR Plan of Treatment Health Maintenance Due Date Last Done Comments Depression Screening 1942 Fall Risk Assessment 1942 DTaP/Tdap/Td Vaccine (1 - Tdap) 1953 Hepatitis B Screening 1960 Well Visit 65+ 2007 Zoster Vaccine (2 of 2) 01/09/2019 11/14/2018 Influenza Vaccine (#1) 2025 8, 03/11/2016, 04/04/2015, Additional history exists Pneumococcal vaccine 65+ Completed 019, 05/08/2017, 03/04/2012 Insurance T MEDICARE Care Teams Bakery Machine Mechanic Supervisor Relationship Specialty Start Date End Date Alfonso Varghese NP [address] [facility] [address] [place] [address] PCP - General Nurse Practitioner 07/01/23
[2025-05-04 21:10] LABS: Alanine Aminotransferase 17 U/L (6-50); Albumin Level 4.2 g/dL (3.5-5.1); Alkaline Phosphatase 89 U/L (38-126); Anion Gap 7 mmol/L (4-12); Aspartate Amino Transferase 21 U/L (17-59); Bilirubin,Total 1.0 mg/dL (0.2-1.3); Blood Urea Nitrogen 13 mg/dL (9-20); Calcium 9.1 mg/dL (8.4-10.2); Carbon Dioxide 23 mmol/L (22-30); Chloride 106 mmol/L (98-107); Estimated CRCL calculation 65 ml/min; Estimated Glomerular Filt Rate > 60; Glucose 140 mg/dL (65-110); Potassium 4.0 mmol/L (3.4-5.0); Sodium 136 mmol/L (137-145); Total Protein 7.5 g/dL (6.3-8.2)
[2025-05-04] MEDS: EPINEPHrine HCL INJ 1 MG/ML AMPUL 0.3 MG IM (23:43)
[2025-05-05 00:04] LABS: Negative Monotest Control Negative (Negative); Positive Monotest Control Positive (Positive)
[2025-05-05] MEDS: CEPHALEXIN 500 MG CAPSULE PO (00:06)
[2025-05-05 00:34] LABS: Strep Group A RT-PCR NOT DETECTED (Negative)
== END 2025-05-05 00:08 | disposition home or self-care (01) ==
PROVIDERS: Emergency Provider Registered Nurse; PCP Nurse Practitioner
DX: J03.90 Acute tonsillitis, unspecified (principal); T78.3XXA Angioneurotic edema, initial encounter; I25.10 Atherosclerotic heart disease of native coronary artery without angina pectoris; I10 Essential (primary) hypertension; E78.2 Mixed hyperlipidemia; E11.9 Type 2 diabetes mellitus without complications; D50.9 Iron deficiency anemia, unspecified; M17.0 Bilateral primary osteoarthritis of knee; Z95.5 Presence of coronary angioplasty implant and graft; Z79.84 Long term (current) use of oral hypoglycemic drugs; Z79.899 Other long term (current) drug therapy; Z79.82 Long term (current) use of aspirin
CPT/HCPCS: 36415; 70491; 80053; 85025; 86308; 87651; 94640; 96361; 96372; 96374; 96375; 99284; A9270; J0166; J1100; J1200; J7030; Q9967